=== PATIENT | female | born 1970 | race Caucasian/White ===

== ENCOUNTER → 2017-11-12 | Day surgery (SDC) | payer SELFPAY ==
[~2017-11-12] MED LIST: LIDOCAINE 2% INJ (20 MG/ML) 20 ML MDV ONE
== END ==
LOC: WI 09:56
PROVIDERS: ATTEND Internal Medicine Geriatric Medicine
DX: C50.912 Malignant neoplasm of unspecified site of left female breast (principal)
CPT/HCPCS: 88305 ×2; 19083; J3490

== ENCOUNTER 2018-04-13 14:25 | Emergency (ER) | payer SELFPAY ==
[2018-04-13 14:42] VITALS: BP 138/83
--- NOTE | 2018-04-13 15:45 | ER Document Report ---
ED Medical Screen (RME) - General Chief Complaint: Laceration Stated Complaint: LACERATION TO KNEE Time Seen by Provider: 04/13/18 15:43 Primary Care Provider: KAT GARCIA MD [Primary Care Provider] - Follow up as needed Notes: 47-year-old female was painting in her kitchen today when she tried to get down from her refrigerator and kneeled onto her glass top stove and fell through it causing a laceration of her left anterior leg just distal to the knee. Her immediately wrapped it up and she came to the emergency department. TRAVEL OUTSIDE OF THE [place] IN LAST 30 DAYS: No - Related Data Allergies/Adverse Reactions: No Known Allergies Allergy (Verified 04/13/18 15:39) Past Medical History - Social History Chew tobacco use (# tins/day): No Frequency of alcohol use: None Drug Abuse: None Renal/ Medical History: Denies: Hx Peritoneal Dialysis Psychiatric Medical History: Reports: Hx Attention Deficit Hyperactivity Disorder Past Surgical History: Reports: Hx Breast Surgery - lumpectomy, Hx Tubal Ligation Physical Exam - Vital signs Vitals: Temp Pulse Resp BP Pulse Ox 98.6 F 88 16 138/83 H 98 04/13/18 14:40 04/13/18 14:40 04/13/18 14:40 04/13/18 14:40 04/13/18 14:40 - Skin Skin Temperature: Warm Skin Moisture: Dry Skin Color: Normal Skin irregularity: Laceration - Anterior left extremity just distal to the knee approximately 3 cm in length bleeding. Course - Vital Signs Vital signs: Temp Pulse Resp BP Pulse Ox 98.6 F 88 16 138/83 H 98 04/13/18 14:40 04/13/18 14:40 04/13/18 14:40 04/13/18 14:40 04/13/18 14:40 Doctor's Discharge - Discharge Referrals: KTA GARCIA MD [Primary Care Provider] - Follow up as needed
--- NOTE | 2018-04-13 16:26 | RADIOLOGY REPORT (SQ) ---
EXAM DESCRIPTION: TIBIA FIBULA LEFT COMPLETED DATE/TIME: 04/13/2018 4:15 pm REASON FOR STUDY: laceration, r/o foreign body COMPARISON: None. NUMBER OF VIEWS: Two views. TECHNIQUE: Two radiographic images acquired of the left tibia and fibula to include the knee and ank le in at least one projection. LIMITATIONS: None. FINDINGS: MINERALIZATION: Normal. BONES: No acute fracture or dislocation. No worrisome bone lesions. SOFT TISSUES: No radiopaque foreign body. OTHER: No other significant finding. IMPRESSION: No fracture or radiopaque foreign body. TECHNICAL DOCUMENTATION: JOB ID: [id number] [id number] 2010 [email or web address]- All Rights Reserved Reading location - IP/workstation name: [email or web address]
== END 2018-04-13 17:55 | disposition left against medical advice (07) ==
LOC: ER 14:25
DX: S81.812A Laceration without foreign body, left lower leg, initial encounter (principal); W25.XXXA Contact with sharp glass, initial encounter; Y93.89 Activity, other specified; Z53.20 Procedure and treatment not carried out because of patient's decision for unspecified reasons
CPT/HCPCS: 99281